=== PATIENT | female | born 1975 | race Caucasian/White ===

== ENCOUNTER 2017-07-12 09:45 | Emergency (ER) | payer MEDICAID ==
[2015-07-27 08:36] VITALS: BMI 27.5
[~2017-07-12 09:45] MED LIST: MULTIPLE VITAMI1 TA1 PO
== END 2017-07-12 11:24 | disposition home or self-care (01) ==
LOC: D.ER 09:45
DX: S06.0X0A Concussion without loss of consciousness, initial encounter (principal); W51.XXXA Accidental striking against or bumped into by another person, initial encounter; Y93.89 Activity, other specified; Y92.019 Unspecified place in single-family (private) house as the place of occurrence of the external cause

== ENCOUNTER 2018-11-21 17:53 | Emergency (ER) | payer MEDICAID ==
[~2018-11-21] VITALS: Ht 162.6 cm; Wt 63.6 kg
[2018-11-21 17:58] VITALS: Ht 162.6 cm; Wt 63.6 kg
[2018-11-21] MEDS ORDERED: VOLTAREN75 MG PO (18:47)
[2018-11-21] MEDS ORDERED: VIBRAMYCIN 100100 MG PO (18:47)
[2018-11-21] MEDS ORDERED: TYLENOL W/CODEI1 TAB PO (20:08)
[2018-11-21 20:18] VITALS: BP 135/84
== END 2018-11-21 20:18 | disposition home or self-care (01) ==
LOC: D.ER 17:53
DX: S61.411A Laceration without foreign body of right hand, initial encounter (principal); W26.8XXA Contact with other sharp object(s), not elsewhere classified, initial encounter; Y93.89 Activity, other specified; Y92.89 Other specified places as the place of occurrence of the external cause